=== PATIENT | male | born 1970 | race Two or more races ===

== ENCOUNTER 2018-07-14 12:09 | Emergency (ER) | payer MEDICAID, OTHER ==
[~2018-07-14] VITALS: Ht 180.3 cm; Wt 131.5 kg
[2018-07-14 12:44] VITALS: BP 133/73
[2018-07-14] MEDS ORDERED: methylPREDNISolone SOD SUCC 125 MG/2 ML VL IM ONE (13:30)
== END 2018-07-14 14:12 | disposition home or self-care (01) ==
LOC: ER 12:11
DX: K12.2 Cellulitis and abscess of mouth (principal)
CPT/HCPCS: 96372; 99283; J2930

== ENCOUNTER 2019-02-20 13:31 | Emergency (ER) | payer MEDICAID, OTHER ==
[~2019-02-20] VITALS: Ht 180.3 cm; Wt 136.1 kg
[2019-02-20 16:01] VITALS: BP 127/86
[2019-02-20] MEDS ORDERED: KETOROLAC TROMETH 60MG/2ML VIAL IM ONE (17:15)
[2019-02-20] MEDS ORDERED: cefTRIAXone SOD 1,000 MG VL IM ONE (18:45)
[2019-02-20] MEDS ORDERED: AZITHROMYCIN 250 MG TAB PO ONE (18:45)
== END 2019-02-20 19:01 | disposition home or self-care (01) ==
LOC: ER 13:31
DX: N45.1 Epididymitis (principal)
CPT/HCPCS: 76870; 81002; 96372; 99284; J0696; J1885